=== PATIENT | female | born 1965 | race Caucasian/White ===

== ENCOUNTER 2022-01-21 11:47 | Emergency (ER) | payer OTHER ==
[~2022-01-21] VITALS: Ht 160 cm; Wt 77.3 kg
[~2022-01-21 11:47] MED LIST: CLOT15CR73 TP; HYDR-3965 PO; IBUP-1984 PO
[2022-01-21 12:09] VITALS: BP 148/89
== END 2022-01-21 13:46 | disposition home or self-care (01) ==
LOC: ER 11:49
DX: M25.571 Pain in right ankle and joints of right foot (principal); M19.90 Unspecified osteoarthritis, unspecified site; G89.29 Other chronic pain; Z90.710 Acquired absence of both cervix and uterus; Z98.890 Other specified postprocedural states; Z88.1 Allergy status to other antibiotic agents; Z88.5 Allergy status to narcotic agent; Z79.2 Long term (current) use of antibiotics; Z79.899 Other long term (current) drug therapy
CPT/HCPCS: 73610; 99283

== ENCOUNTER 2022-07-16 11:38 | Emergency (ER) | payer OTHER ==
[~2022-07-16] VITALS: Ht 160 cm; Wt 77.3 kg
[2022-07-16 12:14] VITALS: BP 155/89
[2022-07-16] MEDS ORDERED: ketorolac trometh inj. 60 MG/2 ML VIAL IM ONE (13:20)
[2022-07-16] MEDS ORDERED: ondansetron 4mg rapidly disintigrating tab PO ONE (13:35)
== END 2022-07-16 13:53 | disposition home or self-care (01) ==
LOC: ER 11:39
DX: S63.602A Unspecified sprain of left thumb, initial encounter (principal); X50.9XXA Other and unspecified overexertion or strenuous movements or postures, initial encounter; Y93.89 Activity, other specified; Y92.89 Other specified places as the place of occurrence of the external cause; Y99.8 Other external cause status
CPT/HCPCS: 29125; 73140; 96372; 99283; J1885

== ENCOUNTER 2024-04-19 19:01 | Emergency (ER) | payer OTHER ==
[~2024-04-19] VITALS: Ht 160 cm; Wt 77.3 kg
[2024-04-19 19:16] VITALS: BP 153/92; PULSE 116; RESP 18; TEMP 100.9; O2SAT 96
== END 2024-04-19 21:44 | disposition left against medical advice (07) ==
LOC: ER 19:02
DX: R50.9 Fever, unspecified (principal); R11.0 Nausea; Z88.1 Allergy status to other antibiotic agents; Z88.8 Allergy status to other drugs, medicaments and biological substances; Z53.21 Procedure and treatment not carried out due to patient leaving prior to being seen by health care provider

== ENCOUNTER 2025-05-28 07:45 | Emergency (ER) | payer OTHER ==
[~2025-05-28] VITALS: Ht 160 cm; Wt 72.7 kg
[2025-05-28 07:48] VITALS: TEMP 98.4
--- NOTE | 2025-05-28 08:22 | RADIOLOGY REPORT ---
PROCEDURE: Right hip radiographs. INDICATION: RIGHT HIP PAIN AFTER FALL TECHNIQUE: Frontal and lateral views of the right hip and frontal view of the pelvis were obtained. COMPARISON: None FINDINGS: There is no evidence of fracture or dislocation. There is right hip joint space narrowing. Osteophytes noted along the right femoral head neck junction. Left hip joint space narrowing and ost eophytes. Postsurgical changes in the lumbar spine. IMPRESSION: 1. No fracture or dislocation. 2. Osteoarthritis in the bilateral hips.
[2025-05-28 09:12] VITALS: BP 189/100; PULSE 75; RESP 16; O2SAT 98
--- NOTE | 2025-05-28 09:26 | Physician Documentation ---
History of Present Illness ~ Chief Complaint: Hip pain Stated Complaint: R HIP PAIN Time Seen by MD: 09:04 Primary Medical Doctor: NONE HPI This 60-year-old female with a history of arthritis and lumbar spinal fusion presents with persistent right hip pain following a ground level fall approximately two weeks prior, patient reports pain is worse when lying on that side at night, patient's primary concern is for a fracture as pain is moderately controlled with ibuprofen and Tylenol [id number]. Patient reports no other injuries from fall and reports no other acute symptoms or concerns. Medication Reconciliation Allergies: Coded Allergies: amoxicillin (Verified Allergy, Unknown, 05/28/25) codeine (Verified Allergy, Unknown, 05/28/25) Scheduled Clotrimazole/Betamet Diprop Cream* (Lotrisone Cream*), 1 APPLIC TP BID Hydrocodone Bit/Acetaminophen 5/325 MG ([place] 5/325 MG), 1-2 TAB PO Q 6 hours prn pain Ibuprofen* (Motrin*), 800 MG PO TID Lidocaine (Lidoderm), 1 PATCH TOP DAILY Past Medical History Past Medical History: Arthritis, Chronic Back Pain Past Surgical History: hysterectomy, orthopedic surgeries Alcohol Use: None Drug Use: none Lives with: Spouse, Family Lives In: Home Review of Systems ROS As stated above in the HPI, otherwise all systems are reviewed and negative. Physical Exam Vital Signs: Temperature: 98.4, Source: Temporal, Heart Rate: 75, Respiratory Rate: 16, BP: 189/100, Pulse Oximetry: 98, Weight: 72.730 Oxygen Flow Rate: 0 Physical Exam VITALS: Reviewed and as above. GENERAL: Alert, nontoxic appearing, no apparent distress. RESPIRATORY: No increased work of breathing, no respiratory distress, speaking in full clear sentences MUSCULOSKELETAL: No obvious deformity bilateral lower extremities, pedal pulses intact bilaterally, sensation intact feet bilaterally Progress Results/Orders Results/Orders Vital Signs 05/28/25 05/28/25 07:48 09:12 Temp 98.4 Pulse 83 75 Resp 18 16 B/P (MAP) 185/92 189/100 (129) Pulse Ox 99 98 O2 Flow Rate 0 0 EKG/XRAY/CT/US/VASC/MRI Bone/Soft Tissue X-Ray (Ext.) : Additional Comment PROCEDURE: Right hip radiographs. INDICATION: RIGHT HIP PAIN AFTER FALL TECHNIQUE: Frontal and lateral views of the right hip and frontal view of the pelvis were obtained. COMPARISON: None FINDINGS: There is no evidence of fracture or dislocation. There is right hip joint space narrowing. Osteophytes noted along the right femoral head neck junction. Left hip joint space narrowing and osteophytes. Postsurgical changes in the lumbar spine. IMPRESSION: 1. No fracture or dislocation. 2. Osteoarthritis in the bilateral hips. Electronically Signed by:MITRA ECHAVARRIA MD Date & Time: 05/28/25819 Dictated by: MITRA ECHAVARRIA MD Dictation date and time: 05/28/25799 I have reviewed and agree with the radiology report. I have reviewed and interpreted the imaging as: No fracture or dislocation Medical Decision Making Findings This 60-year-old female presented with persistent right hip pain following a ground level fall several weeks prior, it is reassuring patient was able to ambulate without difficulty and bear weight. Physical exam did not demonstrate deformity or significant tenderness to palpation. Imaging did not demonstrate evidence of fracture or dislocation though did demonstrate evidence of arthritis. Remainder of physical exam was benign with no other injuries noted or reported by patient. Pain currently managed well with the OTC medications. Patient appropriate for discharge. I discussed home care instructions, follow up instructions, and return to care precautions with the patient who verbalized understanding. Differential Dx:Considerations: Include: Avascular necrosis, Arthritis, Arthritis-Rheumatoid, Arthritis-Septic, Bursitis, Contusion, Dislocation, Fracture-femur, Fracture-hip, Fracture-open, Fracture-pelvis, Sprain Departure Time of Disposition: 09:30 Disposition: 01 HOME / SELF CARE / HOMELESS Impression: Primary Impression: Hip pain Qualified Codes: M25.551 - Pain in right hip Condition: Improved Discharge Instructions: Arthritis, Nonspecific Additional Instructions: Please use the lidocaine patches as prescribed, continue to use ibuprofen and Tylenol as needed for pain, I recommend taking ibuprofen with food to avoid stomach upset. Please follow up with your primary care provider in the next few days. Please return to the emergency department for any new or worsening concerning symptoms. Referrals: NO PRIMARY CARE PROVIDER (PCP) Prescriptions Lidocaine (Lidoderm) 5 % Adh..patch 1 PATCH TOP DAILY for 10 Days, #10 PATCH 0 Refills may wear up to 12 hours Prov: SYDNEE HICKS 05/28/25 Education Educated: Patient Educated regarding: diagnosis, treatment, prognosis, need for follow up Signature Scribe Signature: No scribe Attestation: The note accurately reflects work and decisions made by me.ELAINA Guajardo 05/28/25 20:30 SYDNEE HICKS May 28, 2025 09:26
[2025-05-28] MEDS ORDERED: LIDO-52 TOP (09:30)
== END 2025-05-28 09:41 | disposition home or self-care (01) ==
LOC: ER 07:46
DX: M25.551 Pain in right hip (principal); Z88.0 Allergy status to penicillin; Z88.5 Allergy status to narcotic agent; Z90.710 Acquired absence of both cervix and uterus; W19.XXXA Unspecified fall, initial encounter; Y93.89 Activity, other specified; Y92.89 Other specified places as the place of occurrence of the external cause; Y99.8 Other external cause status
CPT/HCPCS: 73502; 99283